=== PATIENT | male | born 1965 | race Caucasian/White ===

== ENCOUNTER 2022-11-12 14:02 | Emergency (ER) | payer BC | END 2022-11-12 15:51 | disposition home or self-care (01) | LOC: MW.ED 14:02 | DX: M54.50 Low back pain, unspecified (principal); E78.00 Pure hypercholesterolemia, unspecified; I10 Essential (primary) hypertension; E11.9 Type 2 diabetes mellitus without complications; Z91.030 Bee allergy status; Z79.899 Other long term (current) drug therapy; X50.0XXA Overexertion from strenuous movement or load, initial encounter | CPT/HCPCS: 71101-26-RT; 71101-RT; 99283 ==